=== PATIENT | male | born 1945 | race Caucasian/White ===

== ENCOUNTER 2021-11-27 10:08 | Outpatient (CLI) | payer MEDICARE | END 2021-11-27 10:09 | disposition home or self-care (01) | LOC: BURCT 10:08 | PROVIDERS: ATTEND Family Medicine | DX: Z01.818 Encounter for other preprocedural examination (principal); R22.2 Localized swelling, mass and lump, trunk | CPT/HCPCS: 36415; 71260; 82565 ==

== ENCOUNTER 2022-09-05 14:08 | Emergency (ER) | payer MEDICARE | END 2022-09-05 15:33 | disposition home or self-care (01) | LOC: BURERS 14:08 | DX: T16.1XXA Foreign body in right ear, initial encounter (principal); E11.9 Type 2 diabetes mellitus without complications; X58.XXXA Exposure to other specified factors, initial encounter | CPT/HCPCS: 69200 ==